=== PATIENT | female | born 1935 | race Two or more races ===

== ENCOUNTER 2018-03-11 17:54 | Emergency (ER) | payer MEDICARE, MEDICAID ==
[~2018-03-11] VITALS: Ht 167.6 cm; Wt 81.6 kg
--- NOTE | 2018-03-11 18:10 | NUR ---
AAOX3, BIB FAMILY C/O HYPERTENSION, LEFT SIDED CHEST PAIN SINCE LAST NIGHT. SKIN IS WARM AND DRY. RESP IS EVEN AND UNLABORED WITH NAD NOTED. PLACED ON THE MONITOR. AWAITING MD FOR EVAL.
--- NOTE | 2018-03-11 18:57 | NUR ---
REPORT GIVEN TO BRADY HARRIS FOR JESSE.
[2018-03-11 18:59] LABS: BASOPHILS % (AUTO) 0.5 % (0.0-2.0); EOSINOPHILS % (AUTO) 2.1 % (0.0-6.0); HEMATOCRIT 35 % (33-45); HEMOGLOBIN 11.8 g/dL (11.5-14.8); LYMPHOCYTES # (AUTO) 1.5 /CMM (0.8-4.8); LYMPHOCYTES % (AUTO) 36.6 % (20.0-44.0); MEAN CORPUSCULAR HGB CONC 34 g/dl (31.0-36.0); MEAN CORPUSCULAR VOLUME 83 fL (82-100); MONOCYTES # (AUTO) 0.5 /CMM (0.1-1.30); MONOCYTES % (AUTO) 11.4 % (2.0-12.0); NEUTROPHILS # (AUTO) 2.1 /CMM (1.8-8.9); NEUTROPHILS % (AUTO) 49.4 % (43.0-81.0); PLATELET COUNT (AUTO) 274 /CMM (150-450); RDW COEFFICIENT OF VARIATION 14.9 (11.5-15.0); RED BLOOD CELL COUNT(AUTO) 4.17 MIL/uL (4.0-5.2); WHITE BLOOD COUNT (AUTO) 4.2 K/uL (4.3-11.0)
[2018-03-11 19:08] LABS: CALCIUM, SERUM 8.2 mg/dL (8.5-10.1); CARBON DIOXIDE 27 mmol/L (21-32); CHLORIDE 107 mmol/L (98-107); CREATININE 0.8 mg/dL (0.6-1.3); GLUCOSE 101 mg/dL (74-106); SODIUM SERUM 141 mmol/L (136-145); UREA NITROGEN, BLOOD 9 mg/dL (7-18)
[2018-03-11 19:17] LABS: INR 0.89 (0.85-1.15)
--- NOTE | 2018-03-11 20:04 | NUR ---
Patient discharged to home in stable condition. Written and verbal after care instructions given. Patient verbalizes understanding of instruction.IV removed. Catheter intact and site benign. Pressure and 4x4 applied to site. No bleeding noted. VSS upon discharge
[2018-03-11 20:06] VITALS: BP 143/70
== END 2018-03-11 20:07 | disposition home or self-care (01) ==
LOC: ER 17:56
DX: I10 Essential (primary) hypertension (principal)
CPT/HCPCS: 36415; 71045; 80048; 85025; 85730; 93005; 99285; A4606; Z7610

== ENCOUNTER 2021-09-03 13:14 | Outpatient (CLI) | payer MEDICARE, OTHER | END 2021-09-03 23:59 | disposition home or self-care (01) | LOC: MSC 13:14 | PROVIDERS: ATTEND Internal Medicine | DX: I10 Essential (primary) hypertension (principal); R60.0 Localized edema; M79.10 Myalgia, unspecified site; D50.9 Iron deficiency anemia, unspecified ==